=== PATIENT | male | born 2000 | race Caucasian/White ===

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

== ENCOUNTER 2022-09-29 05:45 | Emergency (ER) | payer OTHER ==
[2022-09-29] MEDS ORDERED: Ipratropium/Albuterol 3 ML NEB ONE (06:08)
[2022-09-29] MEDS ORDERED: Lidocaine 1% (PF) 30 ML VIAL ONE (07:18)
[2022-09-29] MEDS ORDERED: Lidocaine 1% PF 5 ML VIAL ONE (08:00)
== END 2022-09-29 08:45 | disposition home or self-care (01) ==
LOC: MADERS 05:45 → EEVIPCON 05:45 → MADERS 08:45
DX: S01.511A Laceration without foreign body of lip, initial encounter (principal); F17.290 Nicotine dependence, other tobacco product, uncomplicated; Y04.8XXA Assault by other bodily force, initial encounter
CPT/HCPCS: 12011; 40650; J2001; J7620

== ENCOUNTER 2022-10-01 20:00 | Emergency (ER) | payer OTHER | END 2022-10-01 20:20 | disposition home or self-care (01) | LOC: MADERS 20:00 | DX: S01.511D Laceration without foreign body of lip, subsequent encounter (principal); F17.210 Nicotine dependence, cigarettes, uncomplicated; F17.290 Nicotine dependence, other tobacco product, uncomplicated; X58.XXXD Exposure to other specified factors, subsequent encounter | CPT/HCPCS: 99282 ==

== ENCOUNTER 2024-11-17 15:06 | Emergency (ER) | payer SELFPAY | END 2024-11-17 16:00 | disposition home or self-care (01) | LOC: MADERS 15:06 | DX: A05.9 Bacterial foodborne intoxication, unspecified (principal) | CPT/HCPCS: 99283 ==

== ENCOUNTER 2024-12-23 19:01 | Emergency (ER) | payer SELFPAY ==
[2024-12-23] MEDS ORDERED: Tetracaine 0.5% PF 4 ML BOT ONE (19:14)
[2024-12-23] MEDS ORDERED: Fluorescein Opthalmic Strip ONE (19:14)
[2024-12-23] MEDS ORDERED: Ibuprofen 600 MG TAB ONE (20:10)
== END 2024-12-23 20:13 | disposition home or self-care (01) ==
LOC: MADERS 19:01
DX: S05.02XA Injury of conjunctiva and corneal abrasion without foreign body, left eye, initial encounter (principal); Z59.71 Insufficient health insurance coverage; W26.8XXA Contact with other sharp object(s), not elsewhere classified, initial encounter
CPT/HCPCS: 99283

== ENCOUNTER 2025-01-11 16:45 | Emergency (ER) | payer SELFPAY ==
[2025-01-11] MEDS ORDERED: Ibuprofen 600 MG TAB ONE (17:10)
== END 2025-01-11 18:41 | disposition home or self-care (01) ==
LOC: MADERS 16:45
DX: J11.1 Influenza due to unidentified influenza virus with other respiratory manifestations (principal); B35.1 Tinea unguium; F17.210 Nicotine dependence, cigarettes, uncomplicated
CPT/HCPCS: 87081; 87428; 87430; 99283; Q0162

== ENCOUNTER 2025-02-03 19:01 | Emergency (ER) | payer SELFPAY | END 2025-02-03 19:26 | disposition home or self-care (01) | LOC: MADERS 19:01 | DX: Z02.79 Encounter for issue of other medical certificate (principal); F17.210 Nicotine dependence, cigarettes, uncomplicated | CPT/HCPCS: 99281 ==